=== PATIENT | female | born 2005 | race Caucasian/White ===

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

== ENCOUNTER 2025-07-27 23:46 | Emergency (ER) | payer MEDICAID, OTHER ==
[~2025-07-27] VITALS: Ht 154.9 cm; Wt 84.0 kg
[~2025-07-27 23:46] MED LIST: CEPH500C2 MT; MUPI1OIN4 TP
[2025-07-27 23:50] VITALS: O2SAT 95
[2025-07-27 23:59] VITALS: BP 130/86; PULSE 98; RESP 18; TEMP 36.9; O2SAT 98
== END 2025-07-28 02:11 | disposition left against medical advice (07) ==
LOC: ER 23:46
DX: R10.9 Unspecified abdominal pain (principal)
CPT/HCPCS: 99281